=== PATIENT | male | born 1940 | race Caucasian/White ===

== ENCOUNTER 2018-10-25 14:30 | Outpatient (CLI) | payer MEDICARE ==
--- NOTE | 2018-10-25 15:19 | CT ---
HEAD CT WITHOUT CONTRAST: Date: 10/25/18 COMPARISON: 04/05/10. HISTORY: Dizziness FINDINGS: No parenchymal hemorrhage. No extra-axial hematoma. No midline shift. Basilar cisterns are patent. Ag e-appropriate atrophy. Cortical radford-white matter differentiation preserved. No evidence of hydroceph alus. White matter hypodensities due to chronic small vessel ischemic change. Calvarium is intact. Ad equate aeration of the sinuses and mastoid air cells. IMPRESSION: No acute intracranial process. Given patient's history, further evaluation with MRI using IAC protoco l may be beneficial. This is assuming that the patient does not have any contraindications to perform ing brain/IAC MRI. POS: OFF
== END 2018-10-25 14:31 | disposition home or self-care (01) ==
LOC: BICCT 14:30
PROVIDERS: ATTEND Internal Medicine
DX: R29.6 Repeated falls (principal)
CPT/HCPCS: 70450

== ENCOUNTER 2019-03-29 14:37 | Outpatient (CLI) | payer MEDICARE | END 2019-03-29 14:38 | disposition home or self-care (01) | LOC: CTENTCT 14:37 | PROVIDERS: ATTEND Otolaryngology Plastic Surgery within the Head & Neck | DX: L03.90 Cellulitis, unspecified (principal) | CPT/HCPCS: 70486 ==

== ENCOUNTER 2021-08-15 07:12 | Inpatient (IN) | payer MEDICARE, OTHER ==
[2021-08-15 07:46] LABS: #Lymphocytes 1.3 thou/uL (1.20-3.40); #Monocytes 1.9 thou/uL (0.11-0.59); #Neutrophils 16.2 thou/uL (1.40-6.50); %Basophils 0.1 % (0.0-1.0); %Eosinophils 0.1 % (0.0-10.0); %Lymphocytes 6.6 % (21.0-51.0); %Monocytes 9.9 % (0.0-10.0); %Neutrophils 83.3 % (42.0-75.0); Hemoglobin 8.8 g/dL (14.0-18.0); Mean Corpuscular HGB CONC 33.3 g/dL (32.0-36.0); Mean Corpuscular Hemoglobin 31.6 pg (27.0-31.0); Mean Corpuscular Volume 94.8 fL (78.0-98.0); Mean Platelet Volume 8.8 fL (7.4-10.4); Platelet Count 245 thou/uL (130-400); RBC Distribution Width 13.3 % (11.5-14.5); Red Blood Cell (RBC) Count 2.79 mill/uL (4.70-6.10); White Blood Cell (WBC) Count 19.4 thou/uL (4.8-10.8)
[2021-08-15 08:07] LABS: ALT (SGPT) 18 U/L (8-55); AST (SGOT) 68 U/L (5-34); Albumin 4.3 g/dL (3.4-4.8); Alkaline Phosphatase 71 U/L (40-110); Anion Gap 18 mmol/L (10-20); BUN (Urea Nitrogen) 28 mg/dL (8.4-25.7); Bilirubin, Total 0.8 mg/dL (0.2-1.2); CK (CPK) 571 U/L (30-200); Calc. Creatinine Clearance 0 mL/min (70-130); Calcium 9.3 mg/dL (7.8-10.44); Carbon Dioxide 22 mmol/L (23-31); Chloride 101 mmol/L (98-107); Globulin 2.8 g/dL (2.4-3.5); Glucose 151 mg/dL (83-110); Lipase 13 U/L (8-78); Potassium 3.7 mmol/L (3.5-5.1); Protein, Total 7.1 g/dL (5.8-8.1); Sodium 137 mmol/L (136-145)
[2021-08-15 08:49] LABS: CKMB 55.1 ng/mL (0-6.6)
[2021-08-15] MEDS ORDERED: Furosemide 40 MG/4 ML VIAL ONE (08:50)
[2021-08-15] MEDS ORDERED: Aspirin Chewable 81 MG TAB ONE (08:50)
[2021-08-15] MEDS ORDERED: Rocuronium Bromide 10 MG/ML (10ML VIAL) ONE (08:59)
[2021-08-15] MEDS ORDERED: Fentanyl CADD 100 ML IV SCH ×2 (09:15→10:30)
[2021-08-15] MEDS ORDERED: fentaNYL Citrate-0.9 % NaCl/PF 100 ML IVPB SCH (09:15)
[2021-08-15 09:25] LABS: Actual Bicarbonate (HCO3a) 14.2 mEq/L (22-28); Analyzer IN Cardio ER; Base Excess (BEa) -14.5 mEq/L (-2.0 to +3.0); CO2 Tension 46.5 mmHg (35.0-45.0); Carboxyhemoglobin (COHb) 0.3 gm% (0.0-3.0); Hemoglobin (Hb) 8.4 g/dL (14.0-18.0); O2 Tension (PaO2), arterial 208.5 mmHg (> 60.0); Potassium - ABG Lab 4.12 mmol/L (3.70-5.30)
[2021-08-15 09:29] LABS: ALV-art Gradient 446.375 mmHg (0-20); Puncture Site LRA
[2021-08-15] MEDS ORDERED: Aspirin 300 MG Suppository ONE (09:34)
[2021-08-15 10:13] LABS: Bilirubin Negative (Negative); Blood, Urine Negative (Negative); Clarity Clear (Clear); Glucose, Urine (Dipstick) Normal (Negative); Ketone, Urine 10 mg/dL (Negative); Leukocyte Negative Leu/uL (Negative); Nitrite Negative (Negative); Protein, Urine (Dipstick) 10 mg/dL (Neg-Trace); Specific Gravity, Urine 1.023 (1.002-1.036); Urobilinogen Normal mg/dL (Less than 2); pH, Urine 6.5 (5.0-9.0)
[2021-08-15] MEDS ORDERED: Ondansetron PF 4 MG/2 ML Vial IVP PRN (10:16)
[2021-08-15] MEDS ORDERED: Electrolyte Replacement Protocol 1 EACH IVPB SCH (10:16)
[2021-08-15] MEDS ORDERED: Bisacodyl 10 MG SUPP PR PRN (10:19)
[2021-08-15] MEDS ORDERED: Acetaminophen 650 MG/20.3 ML UDCUP PO PRN (10:22)
[2021-08-15] MEDS ORDERED: Ventilator Sedation Protocol 1 EACH FS SCH (10:30)
[2021-08-15] MEDS ORDERED: DISCONTINUE PREVIOUS NARCOTIC PAIN MEDICATIONS AND BENZODIAZEPINES FS SCH (10:30)
[2021-08-15] MEDS ORDERED: Morphine 4 MG/ML VIAL SLOW IVP PRN (10:30)
[2021-08-15] MEDS ORDERED: Fentanyl BOLUS 250 ML IVPB PRN (10:30)
[2021-08-15] MEDS ORDERED: Propofol BOLUS 1,000 MG/100 ML VIAL IV PRN (10:30)
[2021-08-15] MEDS ORDERED: Iopamidol-370 76% 500 ML 1 ML ONE (10:34)
[2021-08-15] MEDS ORDERED: Lorazepam 1 MG TAB PO PRN (10:36)
[2021-08-15 11:35] LABS: Troponin I 8.762 ng/mL (< 0.028)
[2021-08-15 11:39] LABS: Lactic Acid 8.9 mmol/L (0.5-2.2)
[2021-08-15] MEDS ORDERED: Piperacillin/Tazobactam 3.375 GM in Sodium Chloride 0.9% 100 ML IVPB SCH (12:00)
[2021-08-15 12:03] LABS: Actual Bicarbonate (HCO3a) 14.9 mEq/L (22-28); Base Excess (BEa) -9.2 mEq/L (-2.0 to +3.0); CO2 Tension 26.1 mmHg (35.0-45.0); Calcium, Ionized (arterial) 1.09 mmol/L (1.12-1.30); Carboxyhemoglobin (COHb) 0.3 gm% (0.0-3.0); Hemoglobin (Hb) 8.4 g/dL (14.0-18.0); O2 Tension (PaO2), arterial 139.3 mmHg (> 60.0); Potassium - ABG Lab 3.92 mmol/L (3.70-5.30); pH, Arterial 7.38 (7.35-7.45)
[2021-08-15 12:05] LABS: ALV-art Gradient 113.275 mmHg (0-20); Puncture Site RBA
[2021-08-15] MEDS: Thiamine HCl 200 MG/2 ML VIAL SLOW IVP SCH (12:13)
[2021-08-15] MEDS: Propofol 1,000 MG/100 ML VIAL IV PRN (12:39)
[2021-08-15 14:43] LABS: Lactic Acid 3.7 mmol/L (0.5-2.2)
[2021-08-15 15:11] LABS: Troponin I 13.427 ng/mL (< 0.028)
[2021-08-15] MEDS: Piperacillin/Tazobactam 3.375 GM in Sodium Chloride 0.9% 100 ML IVPB SCH (20:12)
[2021-08-15] MEDS: Atorvastatin Calcium 40 MG TAB PO SCH (20:12)
[2021-08-16] MEDS: fentaNYL Citrate-0.9 % NaCl/PF 100 ML IV SCH (00:19)
[2021-08-16] MEDS: Norepinephrine 8 MG/0.9% NS 250 ML IVPB PRN (01:35)
[2021-08-16] MEDS: Piperacillin/Tazobactam 3.375 GM in Sodium Chloride 0.9% 100 ML IVPB SCH ×3 (04:41→21:06)
[2021-08-16 05:50] LABS: #Lymphocytes 1.4 thou/uL (1.20-3.40); #Monocytes 1.5 thou/uL (0.11-0.59); #Neutrophils 11.3 thou/uL (1.40-6.50); %Basophils 0.3 % (0.0-1.0); %Eosinophils 0.1 % (0.0-10.0); %Monocytes 10.7 % (0.0-10.0); %Neutrophils 78.9 % (42.0-75.0); Hemoglobin 7.2 g/dL (14.0-18.0); Mean Corpuscular HGB CONC 33.5 g/dL (32.0-36.0); Mean Corpuscular Hemoglobin 31.9 pg (27.0-31.0); Mean Corpuscular Volume 95.2 fL (78.0-98.0); Platelet Count 189 thou/uL (130-400); RBC Distribution Width 13.7 % (11.5-14.5); Red Blood Cell (RBC) Count 2.25 mill/uL (4.70-6.10); White Blood Cell (WBC) Count 14.4 thou/uL (4.8-10.8)
[2021-08-16] MEDS: Levothyroxine Sodium 25 MCG TAB PER TUBE SCH (06:06)
[2021-08-16] MEDS: Propofol 1,000 MG/100 ML VIAL IV PRN (06:06)
[2021-08-16 06:45] LABS: Phosphorus 4.4 mg/dL (2.3-4.7)
[2021-08-16 06:50] LABS: Troponin I 25.059 ng/mL (< 0.028)
[2021-08-16 06:53] LABS: Anion Gap 18 mmol/L (10-20); BUN (Urea Nitrogen) 38 mg/dL (8.4-25.7); Calc. Creatinine Clearance 23 mL/min (70-130); Carbon Dioxide 19 mmol/L (23-31); Chloride 106 mmol/L (98-107); Glucose 120 mg/dL (83-110); Potassium 3.6 mmol/L (3.5-5.1); Sodium 139 mmol/L (136-145)
[2021-08-16 07:07] LABS: Actual Bicarbonate (HCO3a) 19.9 mEq/L (22-28); Base Excess (BEa) -2.1 mEq/L (-2.0 to +3.0); Carboxyhemoglobin (COHb) 0.5 gm% (0.0-3.0); Hemoglobin (Hb) 6.9 g/dL (14.0-18.0); O2 Tension (PaO2), arterial 145.6 mmHg (> 60.0); Potassium - ABG Lab 3.34 mmol/L (3.70-5.30)
[2021-08-16 07:28] LABS: CO2 Tension 23.5 mmHg (35.0-45.0); pH, Arterial 7.55 (7.35-7.45)
[2021-08-16 07:29] LABS: ALV-art Gradient 110.225 mmHg (0-20); Peep/CPAP 7.5 cmH2O; Puncture Site RBA
[2021-08-16] MEDS ORDERED: Enoxaparin Sodium 40 MG/0.4 ML SYRINGE SC SCH (09:00)
[2021-08-16] MEDS: Amiodarone 450 MG in Dextrose 5% in Water 250 ML IVPB SCH ×2 (10:14→19:26)
[2021-08-16] MEDS: Thiamine HCl 200 MG/2 ML VIAL SLOW IVP SCH (10:15)
[2021-08-16] MEDS: Folic Acid 1 MG TAB PO SCH (10:18)
[2021-08-16] MEDS: Pantoprazole 40 MG VIAL IVP SCH (10:19)
[2021-08-16] MEDS: Multivit, Therapeutic 1 TAB PO SCH (10:19)
[2021-08-16] MEDS: Venlafaxine HCl XR 150 MG CAP PO SCH (10:20)
[2021-08-16] MEDS: Aspirin Chewable 81 MG TAB PER TUBE SCH (10:20)
[2021-08-16] MEDS ORDERED: Lorazepam 1 MG TAB PO PRN (10:36)
[2021-08-16] MEDS: Lorazepam 2 MG/ML VIAL SLOW IVP PRN ×2 (16:07→23:22)
[2021-08-16 17:20] LABS: Critical Call Chem Troponin I RESULT DECREASING; Troponin I 18.467 ng/mL (< 0.028)
[2021-08-16] MEDS ORDERED: Albumin 25% 25 GM/100 ML BOT IVPB SCH (20:00)
[2021-08-16] MEDS: Atorvastatin Calcium 40 MG TAB PO SCH (21:26)
[2021-08-16] MEDS: Heparin 5,000 UNITS/ML VIAL SC SCH (21:26)
[2021-08-17] MEDS: Norepinephrine 8 MG/0.9% NS 250 ML IVPB PRN (00:50)
[2021-08-17] MEDS: fentaNYL Citrate-0.9 % NaCl/PF 100 ML IV SCH (02:08)
[2021-08-17] MEDS: Piperacillin/Tazobactam 3.375 GM in Sodium Chloride 0.9% 100 ML IVPB SCH (03:16)
[2021-08-17 04:18] LABS: #Lymphocytes 0.9 thou/uL (1.20-3.40); %Basophils 0.2 % (0.0-1.0); %Eosinophils 0.1 % (0.0-10.0); %Lymphocytes 4.9 % (21.0-51.0); %Monocytes 10.4 % (0.0-10.0); %Neutrophils 84.5 % (42.0-75.0); Hemoglobin 7.7 g/dL (14.0-18.0); Mean Corpuscular HGB CONC 32.8 g/dL (32.0-36.0); Mean Corpuscular Hemoglobin 31.4 pg (27.0-31.0); Mean Corpuscular Volume 95.8 fL (78.0-98.0); Mean Platelet Volume 8.4 fL (7.4-10.4); Platelet Count 238 thou/uL (130-400); Red Blood Cell (RBC) Count 2.44 mill/uL (4.70-6.10)
[2021-08-17 04:38] LABS: Anion Gap 20 mmol/L (10-20); BUN (Urea Nitrogen) 50 mg/dL (8.4-25.7); Calc. Creatinine Clearance 17 mL/min (70-130); Calcium 7.9 mg/dL (7.8-10.44); Carbon Dioxide 20 mmol/L (23-31); Chloride 104 mmol/L (98-107); Glucose 159 mg/dL (83-110); Potassium 3.6 mmol/L (3.5-5.1); Sodium 140 mmol/L (136-145)
[2021-08-17] MEDS: Levothyroxine Sodium 25 MCG TAB PER TUBE SCH (05:55)
[2021-08-17] MEDS: Propofol 1,000 MG/100 ML VIAL IV PRN (06:00)
[2021-08-17 07:24] LABS: Base Excess (BEa) -6.3 mEq/L (-2.0 to +3.0); CO2 Tension 36.8 mmHg (35.0-45.0); Calcium, Ionized (arterial) 1.04 mmol/L (1.12-1.30); Carboxyhemoglobin (COHb) 0.1 gm% (0.0-3.0); Hemoglobin (Hb) 8.5 g/dL (14.0-18.0); O2 Tension (PaO2), arterial 98.2 mmHg (> 60.0); Potassium - ABG Lab 3.43 mmol/L (3.70-5.30); pH, Arterial 7.33 (7.35-7.45)
[2021-08-17 07:30] LABS: Puncture Site RRA
[2021-08-17] MEDS: Aspirin Chewable 81 MG TAB PER TUBE SCH (08:30)
[2021-08-17] MEDS: Multivit, Therapeutic 1 TAB PO SCH (08:30)
[2021-08-17] MEDS: Folic Acid 1 MG TAB PO SCH (08:30)
[2021-08-17] MEDS: Venlafaxine HCl XR 150 MG CAP PO SCH (08:30)
[2021-08-17] MEDS: Pantoprazole 40 MG VIAL IVP SCH (09:13)
[2021-08-17] MEDS: Heparin 5,000 UNITS/ML VIAL SC SCH ×3 (09:17→21:59)
[2021-08-17] MEDS: Piperacillin/Tazobactam 2.25 GM in Sodium Chloride 0.9% 100 ML IVPB SCH ×2 (10:21→21:59)
[2021-08-17] MEDS: Thiamine HCl 200 MG/2 ML VIAL SLOW IVP SCH (10:22)
[2021-08-17] MEDS: Amiodarone 450 MG in Dextrose 5% in Water 250 ML IVPB SCH (10:35)
[2021-08-17] MEDS ORDERED: Lorazepam 1 MG TAB PO PRN (10:36)
[2021-08-17] MEDS: Lorazepam 0.5 MG TAB PO SCH ×3 (11:46→21:57)
[2021-08-17] MEDS: Albumin 25% 25 GM/100 ML BOT IVPB SCH ×2 (16:41→21:59)
[2021-08-17 17:17] LABS: Bilirubin Negative (Negative); Blood, Urine 3+ (Negative); Clarity Turbid (Clear); Glucose, Urine (Dipstick) Normal (Negative); Ketone, Urine Negative (Negative); Leukocyte 500 Leu/uL (Negative); Nitrite Negative (Negative); Protein, Urine (Dipstick) 50 mg/dL (Neg-Trace); Specific Gravity, Urine 1.027 (1.002-1.036); Squamous Epithelial 0-3 HPF (0-3); Urobilinogen Normal mg/dL (Less than 2); WBC/HPF 21-50 HPF (0-3); pH, Urine 5.5 (5.0-9.0)
[2021-08-17 17:25] LABS: RBC/HPF 21-50 HPF (0-3)
[2021-08-17 17:26] LABS: Bacteria/HPF 2+ HPF (None Seen); Yeast-Budding None Seen HPF (None Seen)
[2021-08-17] MEDS: Lorazepam 2 MG/ML VIAL SLOW IVP SCH ×2 (17:48→23:20)
[2021-08-17] MEDS: Atorvastatin Calcium 40 MG TAB PO SCH (21:57)
[2021-08-18] MEDS ORDERED: Lorazepam 2 MG/ML VIAL SLOW IVP SCH (03:15)
[2021-08-18] MEDS: Amiodarone 450 MG in Dextrose 5% in Water 250 ML IVPB SCH (03:37)
[2021-08-18] MEDS: Albumin 25% 25 GM/100 ML BOT IVPB SCH ×2 (03:39→09:51)
[2021-08-18] MEDS ORDERED: Sodium Chloride 0.9% 500 ML IV SCH (03:45)
[2021-08-18] MEDS: Lorazepam 0.5 MG TAB PO SCH (03:52)
[2021-08-18] MEDS: Lorazepam 2 MG/ML VIAL SLOW IVP SCH (05:59)
[2021-08-18] MEDS: Levothyroxine Sodium 25 MCG TAB PER TUBE SCH (05:59)
[2021-08-18 08:14] LABS: #Lymphocytes 0.8 thou/uL (1.20-3.40); #Monocytes 1.8 thou/uL (0.11-0.59); #Neutrophils 11.5 thou/uL (1.40-6.50); %Basophils 0.1 % (0.0-1.0); %Eosinophils 0.1 % (0.0-10.0); %Lymphocytes 5.7 % (21.0-51.0); %Monocytes 12.5 % (0.0-10.0); %Neutrophils 81.5 % (42.0-75.0); Hemoglobin 7.2 g/dL (14.0-18.0); Mean Corpuscular HGB CONC 32.4 g/dL (32.0-36.0); Mean Corpuscular Hemoglobin 31.2 pg (27.0-31.0); Mean Corpuscular Volume 96.2 fL (78.0-98.0); Platelet Count 214 thou/uL (130-400); RBC Distribution Width 13.9 % (11.5-14.5); White Blood Cell (WBC) Count 14.1 thou/uL (4.8-10.8)
[2021-08-18 08:31] LABS: Anion Gap 29 mmol/L (10-20); BUN (Urea Nitrogen) 61 mg/dL (8.4-25.7); Calc. Creatinine Clearance 13 mL/min (70-130); Calcium 8.7 mg/dL (7.8-10.44); Carbon Dioxide 12 mmol/L (23-31); Chloride 105 mmol/L (98-107); Glucose 76 mg/dL (83-110); Sodium 142 mmol/L (136-145)
[2021-08-18] MEDS: Multivit, Therapeutic 1 TAB PO SCH (09:05)
[2021-08-18] MEDS: Folic Acid 1 MG TAB PO SCH (09:05)
[2021-08-18] MEDS: Aspirin Chewable 81 MG TAB PER TUBE SCH (09:05)
[2021-08-18] MEDS: Venlafaxine HCl XR 150 MG CAP PO SCH (09:05)
[2021-08-18 09:09] LABS: Troponin I 20.096 ng/mL (< 0.028)
[2021-08-18] MEDS ORDERED: Morphine 2 MG/ML VIAL SLOW IVP PRN ×2 (09:30→13:00)
[2021-08-18] MEDS ORDERED: Lorazepam 2 MG/ML VIAL SLOW IVP PRN (09:30)
[2021-08-18] MEDS: Heparin 5,000 UNITS/ML VIAL SC SCH (09:51)
[2021-08-18] MEDS: Piperacillin/Tazobactam 2.25 GM in Sodium Chloride 0.9% 100 ML IVPB SCH (09:52)
[2021-08-18] MEDS: Pantoprazole 40 MG VIAL IVP SCH (09:52)
[2021-08-18] MEDS ORDERED: Lorazepam 0.5 MG TAB PO PRN (10:36)
[2021-08-18] MEDS ORDERED: Thiamine 100 MG TAB PO SCH (10:45)
[2021-08-18] MEDS: Morphine 2 MG/ML VIAL SLOW IVP PRN ×3 (13:10→23:57)
[2021-08-18] MEDS: Morphine 4 MG/ML VIAL SLOW IVP PRN ×2 (21:36→22:15)
[2021-08-18] MEDS ORDERED: Sterile Water 10 ML VIAL FS PRN (22:30)
[2021-08-18] MEDS ORDERED: Ziprasidone 20 MG VIAL IM SCH (22:30)
[2021-08-19] MEDS: Morphine 4 MG/ML VIAL SLOW IVP PRN ×7 (00:58→22:16)
[2021-08-19 12:05] VITALS: BMI 24.4
[2021-08-20] MEDS: Morphine 4 MG/ML VIAL SLOW IVP PRN ×3 (00:45→10:33)
[2021-08-20 08:27] VITALS: BP 118/67; TEMP 98.4
== END 2021-08-20 14:24 | disposition hospice, home (50) | DRG 871 ==
LOC: ERS 07:12 → CCU 09:08 → T4-B 08-19 04:52
PROVIDERS: ADMIT Hospitalist; ATTEND Hospitalist
PROC: 0BH17EZ Insertion of Endotracheal Airway into Trachea, Via Natural or Artificial Opening (ICD-10-PCS; principal; 2021-08-15)
PROC: 5A1945Z Respiratory Ventilation, 24-96 Consecutive Hours (ICD-10-PCS; 2021-08-15)
PROC: 0D9770Z Drainage of Stomach, Pylorus with Drainage Device, Via Natural or Artificial Opening (ICD-10-PCS; 2021-08-15)
PROC: 3E033XZ Introduction of Vasopressor into Peripheral Vein, Percutaneous Approach (ICD-10-PCS; 2021-08-15)
PROC: 3E03329 Introduction of Other Anti-infective into Peripheral Vein, Percutaneous Approach (ICD-10-PCS; 2021-08-15)
PROC: 30233N1 Transfusion of Nonautologous Red Blood Cells into Peripheral Vein, Percutaneous Approach (ICD-10-PCS; 2021-08-16)
DX: A41.9 Sepsis, unspecified organism (principal); I21.4 Non-ST elevation (NSTEMI) myocardial infarction; J96.01 Acute respiratory failure with hypoxia; J18.9 Pneumonia, unspecified organism; I13.0 Hypertensive heart and chronic kidney disease with heart failure and stage 1 through stage 4 chronic kidney disease, or unspecified chronic kidney disease; E87.2 Acidosis; N17.9 Acute kidney failure, unspecified; M35.1 Other overlap syndromes; I42.9 Cardiomyopathy, unspecified; Z66 Do not resuscitate; Z20.822 Contact with and (suspected) exposure to COVID-19; K21.9 Gastro-esophageal reflux disease without esophagitis; M79.7 Fibromyalgia; E78.00 Pure hypercholesterolemia, unspecified; F41.9 Anxiety disorder, unspecified; F32.A Depression, unspecified; E03.9 Hypothyroidism, unspecified; E78.5 Hyperlipidemia, unspecified; G89.4 Chronic pain syndrome; K58.9 Irritable bowel syndrome, unspecified; I73.00 Raynaud's syndrome without gangrene; F40.240 Claustrophobia; F43.10 Post-traumatic stress disorder, unspecified; M35.00 Sjogren syndrome, unspecified; E53.8 Deficiency of other specified B group vitamins; D63.1 Anemia in chronic kidney disease; I50.9 Heart failure, unspecified; Z51.5 Encounter for palliative care; I48.0 Paroxysmal atrial fibrillation; Z88.1 Allergy status to other antibiotic agents; Z79.82 Long term (current) use of aspirin; Z79.890 Hormone replacement therapy; Z79.899 Other long term (current) drug therapy; Z85.51 Personal history of malignant neoplasm of bladder; Z85.46 Personal history of malignant neoplasm of prostate
CPT/HCPCS: 31500; 36415; 36430; 36600; 43762; 51702; 71045; 74177; 80048; 80053; 81001; 81003; 82550; 82553; 82805; 83605; 83690; 83735; 83880; 84100; 84484; 85025; 86850; 86900; 86901; 87040; 87086; 93005; 93010; 93306; 94002; 94003; 94760; 96374; 96375; C9113; J0282; J1644; J1650; J1940; J2060; J2270; J2543; J2704; J3411; J3490; J7030; J7070; P9016; P9047; Q9967; U0003; U0005